=== PATIENT | male | born 1975 | race Caucasian/White ===

== ENCOUNTER 2023-11-01 17:00 | Emergency (ER) | payer OTHER ==
[~2023-11-01] VITALS: Ht 188 cm; Wt 90.9 kg
[2023-11-01] MEDS ORDERED: NS 1,000 ML IV ONE (17:30)
[2023-11-01] MEDS ORDERED: Iohexol 300 - 100 ML VIAL IV ONE (17:37)
[2023-11-01 17:48] LABS: BASO # 0.03 K/mm3 (0.02-0.10); EOS # 0.07 K/mm3 (0.04-0.40); EOS % 1.5 % (0.0-4.0); HEMATOCRIT 32.5 % (42.0-52.0); HEMOGLOBIN 9.3 g/dL (13.5-18.0); LYMPH# 1.19 K/mm3 (1.50-4.00); MEAN CELL VOLUME 63 fl (78-100); MEAN CORPUSCULAR HEMOGLOBIN 18 pg (27-31); MEAN CORPUSCULAR HGB CONC 29 g/dL (33-37); MEAN PLATELET VOLUME 10.1 fl (7.4-10.4); MONO # 0.35 K/mm3 (0.20-0.80); NEU # 3.02 K/mm3 (1.40-6.50); RED CELL DISTRIBUTION WIDTH 18.6 % (11.5-14.5); WHITE BLOOD COUNT 4.7 K/mm3 (4.8-10.8)
[2023-11-01 17:55] LABS: ALBUMIN 4.1 g/dL (3.5-5.0)
[2023-11-01 17:56] LABS: CALCIUM 9.2 mg/dL (8.3-10.5)
[2023-11-01 17:58] LABS: TOTAL PROTEIN 6.9 g/dL (6.4-8.3)
[2023-11-01 17:59] LABS: TOTAL BILIRUBIN 0.9 mg/dL (0.2-1.2)
[2023-11-01 18:08] LABS: PLATELET COUNT 229 K/mm3 (130-400)
[2023-11-01 18:13] LABS: PH-URINE 5.5 (5.0 - 8.0); URINE APPEARANCE CLEAR (CLEAR); URINE BILIRUBIN NEGATIVE (NEGATIVE); URINE BLOOD NEGATIVE (NEGATIVE); URINE COLOR YELLOW (YELLOW); URINE GLUCOSE NEGATIVE (NEGATIVE); URINE KETONE NEGATIVE (NEGATIVE); URINE LEUKOCYTE ESTERASE TRACE (NEGATIVE); URINE NITRATE NEGATIVE (NEGATIVE); URINE PROTEIN(semi-quant) NEGATIVE (NEGATIVE)
[2023-11-01 18:35] VITALS: BP 165/94
== END 2023-11-01 18:38 | disposition home or self-care (01) ==
LOC: ED 17:00
PROVIDERS: Family Medicine
DX: R10.84 Generalized abdominal pain (principal); E87.6 Hypokalemia; D50.9 Iron deficiency anemia, unspecified
CPT/HCPCS: J7030; Q9967